=== PATIENT | female | born 1995 | race Caucasian/White ===

== ENCOUNTER 2020-06-30 13:24 | Emergency (ER) | payer BC ==
[~2020-06-30] VITALS: Ht 160 cm; Wt 72.6 kg
[2020-06-30 13:32] VITALS: Ht 160 cm; Wt 72.6 kg
[2020-06-30 16:10] LABS: microscopic required? YES; urine erythrocyte NEGATIVE (NEGATIVE)
[2020-06-30 16:14] LABS: BASOPHIL % 0.6 % (0-2); PLATELET COUNT 313 x10^3mcL (130-400)
[2020-06-30 16:16] LABS: RED CELL DISTRIBUTION WIDTH 17.8 % (11.5-14.5)
[2020-06-30 17:00] VITALS: BP 128/79
== END 2020-06-30 17:00 | disposition home or self-care (01) ==
LOC: ED 13:24
PROVIDERS: Emergency Medicine
DX: O20.0 Threatened abortion (principal)
CPT/HCPCS: Q0092